=== PATIENT | male | born 1955 | race Caucasian/White ===

== ENCOUNTER 2023-03-03 13:09 | Outpatient (CLI) | payer MEDICARE, OTHER, SELFPAY ==
--- NOTE | ~2023-03-03 | XR_ITS ---
XR shoulder LT min 2V 03/03/2023 13:42 Indication: Left shoulder pain Procedure: 4 views left shoulder Comparison: No prior studies for comparison. Findings: Mild glenohumeral joint osteoarthritis. No fracture or traumatic malalignment. No soft tiss ue abnormality. No foreign bodies. Impression: 1: Mild left glenohumeral joint osteoarthritis. Reviewed, dictated and finalized at location L. Impression: 1: Mild left glenohumeral joint osteoarthritis.
--- NOTE | ~2023-03-03 | XR_ITS ---
XR shoulder RT min 2V 03/03/2023 13:42 Indication: Chronic shoulder pain Procedure: 4 views right shoulder Comparison: No prior studies for comparison. Findings: There is mild glenohumeral joint osteoarthritis. Anatomic alignment. No fracture or traumat ic malalignment. No soft tissue abnormality. No foreign bodies. Impression: 1: Mild glenohumeral joint osteoarthritis. Reviewed, dictated and finalized at location L. Impression: 1: Mild glenohumeral joint osteoarthritis.
== END 2023-03-03 13:10 | disposition home or self-care (01) ==
PROVIDERS: Visit Provider Orthopaedic Surgery
DX: M19.012 Primary osteoarthritis, left shoulder (principal); M19.011 Primary osteoarthritis, right shoulder
CPT/HCPCS: 73030